=== PATIENT | female | born 1985 | race African-American/Black ===

== ENCOUNTER 2024-09-03 13:26 | Emergency (ER) | payer MEDICAID ==
[~2024-09-03] VITALS: Ht 165.1 cm; Wt 70.0 kg
[2024-09-03 13:27] VITALS: BP 200/128; PULSE 105; RESP 16; TEMP 98; O2SAT 100
== END 2024-09-03 16:20 | disposition left against medical advice (07) ==
LOC: ER 13:26
DX: R07.9 Chest pain, unspecified (principal); I10 Essential (primary) hypertension; Z53.29 Procedure and treatment not carried out because of patient's decision for other reasons
CPT/HCPCS: 93005; 99283; 99285